=== PATIENT | male | born 1975 ===

== ENCOUNTER → 2016-12-07 | Day surgery (SDC) | payer BC ==
--- NOTE | 2016-11-28 20:50 | HP ---
ADMITTING HISTORY AND PHYSICAL: DATE OF ADMISSION: 12/07/16 - [facility] AGE: 41 years, male. ADMITTING DIAGNOSIS: Elective sterilization. PLANNED PROCEDURE: Bilateral vasectomy with intravenous sedation. SURGEON: Chester Jenkins MD HISTORY OF PRESENT ILLNESS: Edward Valle is a 41-year-old gentleman who is interested in vasectomy for permanent sterilization. He has a history of vasovagal episode and because of that, he is now being brought in for vasectomy with intravenous sedation. PAST MEDICAL HISTORY: Unremarkable. PAST SURGICAL HISTORY: Significant for wisdom teeth extraction. MEDICATIONS ON ADMISSION: None. ALLERGIES: No known drug allergies. PHYSICAL EXAMINATION GENERAL: Reveals a pleasant, healthy-appearing, young gentleman. VITAL SIGNS: Blood pressure is 130/80, pulse 57 per minute, regular, oxygen saturation 96%. LUNGS: Clear bilaterally. CARDIOVASCULAR: Regular rate and rhythm. S1 and S2. ABDOMEN: Soft without masses. EXTERNAL GENITALIA: Testicles are descended bilaterally. The left testicle is a little bit higher in the scrotum. The vas deferens are palpable bilaterally. IMPRESSION: A 41-year-old gentleman who desires vasectomy for permanent sterilization. Because of history of vasovagal episode, he is being brought in for vasectomy with intravenous sedation. I have discussed the procedure in detail including possible risks of bleeding, infection, failure of vasectomy, and chronic testicular pain, and all his questions have been answered. PLAN: Bilateral vasectomy with IV sedation. CC: David Bledsoe MD; Chester Jenkins MD * [id number]/[facility] #: [id number] MTDD
[~2016-12-07] MED LIST: Buffered Lidocaine 1% SYR 3ML* 3 ML/SYR SYRINGE INTRADERM ONE; Buffered Lidocaine 1% SYR 3ML* 3 ML/SYR SYRINGE ONE; Famotidine IV* 10 MG/ML 2 ML (20 mg) IV ONE; Famotidine IV* 10 MG/ML 2 ML (20 mg) ONE; KETAMINE HCL* 50 MG/ML 10 ML VIAL ONE; Ketorolac INJ* 30 MG/ML 1 ML VIAL ONE; Lidocaine 1% INJ* 10 MG/ML 30 ML SDV ONE; Lidocaine 2% MPF* 2 ML VIAL ONE; Metoclopramide TAB* 10 MG ONE; Metoclopramide TAB* 10 MG PO ONE; Midazolam* 1 MG/ML 5 ML VIAL (5 MG) ONE; Ondansetron INJ* 2 MG/ML VIAL IV PRN; Ondansetron INJ* 2 MG/ML VIAL ONE; Propofol* 10 MG/ML 20 ML BTL IV PUSH ONE; cefTRIAXone VIAL(*) 1,000 MG VIAL ONE; cefTRIAXone VIAL(*) 1,000 MG in NS 0.9% 50 ML* 50 ML IVPB ONE; fentaNYL* 50 MCG/ML 2 ML VIAL (100 MCG VIAL) ONE; oxyCODONE/Acetamin 5/325 MG* TAB PO PRN
[2016-12-07 10:28] VITALS: BP 112/73
--- NOTE | 2016-12-07 20:05 | OP ---
DATE OF OPERATION: 12/07/16 - [facility] DATE OF : [birth year] - AGE: 41 years, male. SURGEON: Chester Jenkins MD. ANESTHESIOLOGIST: Dr. Murry. ANESTHESIA: Local plus IV sedation. PRE-OP DIAGNOSIS: Elective sterilization. POST-OP DIAGNOSIS: Elective sterilization. OPERATIVE PROCEDURE: Bilateral vasectomy. INDICATIONS: Edward Valle is a 41-year-old gentleman who is interested in vasectomy. He has a history of vasovagal episode and is being brought in for vasectomy with intravenous sedation. COMPLICATIONS: None. POSTOPERATIVE CONDITION: Stable. BLOOD LOSS: Minimal. SPECIMEN: Right and left vas deferens. DESCRIPTION OF PROCEDURE: After induction of intravenous sedation, the external genitalia were prepped and draped in the usual sterile fashion. A small transverse incision was made on the left side. The vas deferens was identified and was pulled out through the incision. A small segment of the vas was excised and the divided ends were controlled using hemoclips. The divided ends were then allowed to drop back into their normal anatomic position. The skin was approximated using interrupted sutures of 4-0 chromic. An identical procedure was carried out on the right side. Once again, a small segment of the vas was excised and once again the divided ends were controlled using hemoclips. All sponge and needle counts were correct. The patient tolerated the procedure satisfactorily and was transferred back to the recovery area in stable condition. [id number]/[facility] #: [id number] MTDD
== END | disposition home or self-care (01) ==
LOC: OR 07:20
PROVIDERS: ATTEND Urology
DX: Z30.2 Encounter for sterilization (principal)
CPT/HCPCS: 88302; A9270-GY; J0696; J1885; J2250; J2405; J2704; J3010